=== PATIENT | male | born 1985 | race Native Hawaiian/Other Pacific Islander ===

== ENCOUNTER → 2021-02-28 | Outpatient (CLI) | payer OTHER ==
[~2021-02-28] MED LIST: CEPHALEXIN500 M1 PO; LORTAB 7.5/5001 TAB PO; NO HOME MEDICATIONS; NORCO 325 MG-51 TAB PO; PERCOCET 500 MG1 TAB PO; PHENERGAN W/CO120 ML PO; TUSS PO; ZITHROMAX Z PA250 MG PO; [UNRECOGNIZED DRUG - REMARK]; unknown antibiotic
== END ==
LOC: COL.RAD 10:23
DX: S83.512A Sprain of anterior cruciate ligament of left knee, initial encounter (principal)

== ENCOUNTER → 2021-03-03 | Outpatient (CLI) | payer OTHER | LOC: COL.RAD 09:34 | DX: S43.432A Superior glenoid labrum lesion of left shoulder, initial encounter (principal); M25.511 Pain in right shoulder | CPT/HCPCS: A9585; Q9967 ==